=== PATIENT | female | born 1980 | race Caucasian/White ===

== ENCOUNTER 2017-08-07 14:31 | Emergency (ER) | payer BC ==
[2017-08-07] MEDS ORDERED: Sodium Chloride 0.9% 2.5 ML Syringe FLUSH PRN (14:52)
[2017-08-07] MEDS ORDERED: Sodium Chloride 0.9% 10 ML Syringe FLUSH PRN (14:52)
--- NOTE | 2017-08-07 15:30 | EDM.PDOC ---
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 She now has minimal bleeding when she wipes urinating. Patient denies any pelvic pain she says she feels "electrical zap" on her cervix every now and then. Review of systems: As per history of present illness and below otherwise all systems reviewed and negative. Past medical history: As per history of present illness and as reviewed below otherwise noncontributory. Surgical history: As per history of present illness and as reviewed below otherwise noncontributory. Social history: No reported history of drug or alcohol abuse. Family history: As per history of present illness and as reviewed below otherwise noncontributory. Physical exam: General: Well developed, well nourished in NAD HEENT: Atraumatic, normocephalic, pupils reactive, negative for conjunctival pallor or scleral icterus, mucous membranes moist, throat clear, neck supple, nontender, trachea midline. Lungs: Clear to auscultation, breath sounds equal bilaterally, chest nontender. Heart: S1S2, regular, negative for clicks, rubs, or JVD. Abdomen: Soft, nondistended, nontender. Negative for masses or hepatosplenomegaly. Negative for costovertebral tenderness. Pelvis: Stable nontender. Genitourinary: Deferred. Rectal: Deferred. Extremities: Atraumatic, negative for cords or calf pain. Neurovascular unremarkable. Neuro: Awake, alert, oriented. Cranial nerves II through XII unremarkable. Cerebellum unremarkable. Motor and sensory unremarkable throughout. Exam nonfocal. Diagnostics: []Ultrasound shows viable fetus at 6 weeks and 0 days heartbeat and 25 beats minute without signs of hemorrhaging Therapeutics: [] Impression: []Threatened Plan: [] Definitive disposition and diagnosis as appropriate pending reevaluation and review of above. Lower Abdomen Pain Score (Numeric/FACES): 1 - Related Data Allergies Allergy/AdvReac Type Severity Reaction Status Date / Time minocycline Allergy Shortness Verified 08/07/17 14:40 of Breath Home Meds: Home Meds Aspirin 81 mg PO DAILY 08/07/17 [History] Estrogens, Conjugated [Premarin] 0.25 mg PO DAILY 08/07/17 [History] Iron 85 mg PO DAILY 08/07/17 [History] Iar373/FA/Omega3/Dha/Fish Oil [ Gummies] 1 tab PO DAILY 08/07/17 [ History] Progesterone 50 mg PO DAILY 08/07/17 [History] Past Medical History HEENT History: Reports: None Cardiovascular History: Reports: None Respiratory History: Reports: None Gastrointestinal History: Reports: None Genitourinary History: Reports: None 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 Musculoskeletal History: Reports: None Neurological History: Reports: None Psychiatric History: Reports: None Endocrine/Metabolic History: Reports: None Hematologic History: Reports: None Immunologic History: Reports: None Oncologic (Cancer) History: Reports: None Dermatologic History: Reports: None - Past Surgical History Head Surgeries/Procedures: Reports: None HEENT Surgical History: Reports: Tonsillectomy Cardiovascular Surgical History: Reports: None Respiratory Surgical History: Reports: None GI Surgical History: Reports: Appendectomy Female Surgical History: Reports: None Endocrine Surgical History: Reports: None Neurological Surgical History: Reports: None Musculoskeletal Surgical History: Reports: None Oncologic Surgical History: Reports: None Social & Family History - Family History Family Medical History: Noncontributory - Tobacco Use Smoking Status *Q: Never Smoker - Caffeine Use Caffeine Use: Reports: Coffee - Recreational Drug Use Recreational Drug Use: No ED ROS GENERAL - Review of Systems Review Of Systems: See Below ED EXAM - Physical Exam Exam: See Below (See history of present illness) Course - Vital Signs Last Recorded V/S: Last Vital Signs Temp 37.2 C 08/07/17 14:42 Pulse 58 L 08/07/17 16:40 Resp 16 08/07/17 16:40 BP 115/70 08/07/17 16:40 Pulse Ox 98 08/07/17 16:40 - Orders/Labs/Meds Orders: Active Orders 24 hr Category Date Time Status OB Transvaginal [US] Stat Exams 08/07/17 14:52 Taken Saline Lock Insert [OM.PC] Stat Oth 08/07/17 14:51 Ordered Labs: Laboratory Tests 08/07/17 08/07/17 08/07/17 Range/Units 15:04 15:04 15:04 WBC 13.25 H (4.0-11.0) K/uL RBC 4.44 (4.30-5.90) M/uL Hgb 13.7 (12.0-16.0) g/dL Hct 39.7 (36.0-46.0) % MCV 89.4 (80.0-98.0) fL MCH 30.9 (27.0-32.0) pg MCHC 34.5 (31.0-37.0) g/dL RDW Std Deviation 42.9 (28.0-62.0) fl RDW Coeff of Gladys 13 (11.0-15.0) % Plt Count 288 (150-400) K/uL MPV 10.50 (7.40-12.00) fL Neut % (Auto) 77.3 (48.0-80.0) % Lymph % (Auto) 15.1 L (16.0-40.0) % [place] % (Auto) 4.8 (0.0-15.0) % Eos % (Auto) 2.3 (0.0-7.0) % Baso % (Auto) 0.5 (0.0-1.5) % Neut # (Auto) 10.3 H (1.4-5.7) K/uL Lymph # (Auto) 2.0 (0.6-2.4) K/uL [place] # (Auto) 0.6 (0.0-0.8) K/uL Eos # (Auto) 0.3 (0.0-0.7) K/uL Baso # (Auto) 0.1 (0.0-0.1) K/uL Nucleated RBC % 0.0 /100WBC Nucleated RBCs # 0 K/uL HCG, Qual POSITIVE H (NEG) HCG, Quant mIU/mL Urine Color Urine Appearance Urine pH (5.0-8.0) Ur Specific [place] (1.001-1.035) Urine Protein (NEGATIVE) mg/dL Urine Glucose (UA) (NEGATIVE) mg/dL Urine Ketones (NEGATIVE) mg/dL Urine Occult Blood (NEGATIVE) Urine Nitrite (NEGATIVE) Urine Bilirubin (NEGATIVE) Urine Urobilinogen (<2.0) EU/dL Ur Leukocyte Esterase (NEGATIVE) Urine RBC (0-2/HPF) Urine WBC (0-5/HPF) Ur Epithelial Cells (NONE-FEW) Urine Bacteria (NEGATIVE) Blood Type O POSITIVE 08/07/17 08/07/17 Range/Units 15:04 15:25 WBC (4.0-11.0) K/uL RBC (4.30-5.90) M/uL Hgb (12.0-16.0) g/dL Hct (36.0-46.0) % MCV (80.0-98.0) fL MCH (27.0-32.0) pg MCHC (31.0-37.0) g/dL RDW Std Deviation (28.0-62.0) fl RDW Coeff of Gladys (11.0-15.0) % Plt Count (150-400) K/uL MPV (7.40-12.00) fL Neut % (Auto) (48.0-80.0) % Lymph % (Auto) (16.0-40.0) % [place] % (Auto) (0.0-15.0) % Eos % (Auto) (0.0-7.0) % Baso % (Auto) (0.0-1.5) % Neut # (Auto) (1.4-5.7) K/uL Lymph # (Auto) (0.6-2.4) K/uL [place] # (Auto) (0.0-0.8) K/uL Eos # (Auto) (0.0-0.7) K/uL Baso # (Auto) (0.0-0.1) K/uL Nucleated RBC % /100WBC Nucleated RBCs # K/uL HCG, Qual (NEG) HCG, Quant 6375.5 mIU/mL Urine Color YELLOW Urine Appearance CLEAR Urine pH 6.0 (5.0-8.0) Ur Specific [place] <= 1.005 (1.001-1.035) Urine Protein NEGATIVE (NEGATIVE) mg/dL Urine Glucose (UA) NEGATIVE (NEGATIVE) mg/dL Urine Ketones NEGATIVE (NEGATIVE) mg/dL Urine Occult Blood SMALL H (NEGATIVE) Urine Nitrite NEGATIVE (NEGATIVE) Urine Bilirubin NEGATIVE (NEGATIVE) Urine Urobilinogen 0.2 (<2.0) EU/dL Ur Leukocyte Esterase NEGATIVE (NEGATIVE) Urine RBC 0-1 (0-2/HPF) Urine WBC NONE SEEN (0-5/HPF) Ur Epithelial Cells RARE (NONE-FEW) Urine Bacteria RARE (NEGATIVE) Blood Type Meds: Medications Discontinued Medications Generic Name Dose Route Start Last Admin Trade Name Freq PRN Reason Stop Dose Admin Sodium Chloride 10 ml 08/07/17 14:52 Saline Flush FLUSH ASDIRECTED PRN Keep Vein Open Sodium Chloride 2.5 ml 08/07/17 14:52 Saline Flush FLUSH ASDIRECTED PRN Keep Vein Open Departure - Departure Time of Disposition: 16:47 Disposition: Home, Self-Care 01 Condition: Good Clinical Impression: Threatened - Discharge Information Instructions: Threatened Miscarriage, Vaginal Bleeding During , First Trimester, [id number] Referrals: Anshu Haq MD [Physician] - Catalina Moreau MD [Physician] - Forms: ED Department Discharge Additional Instructions: The following information is given to patients seen in the emergency department who are being discharged to home. This information is to outline your options for follow-up care. We provide all patients seen in our emergency department with a follow-up referral. The need for follow-up, as well as the timing and circumstances, are variable depending upon the specifics of your emergency department visit. If you don't have a primary care physician on staff, we will provide you with a referral. We always advise you to contact your personal physician following an emergency department visit to inform them of the circumstance of the visit and for follow-up with them and/or the need for any referrals to a consulting specialist. The emergency department will also refer you to a specialist when appropriate. This referral assures that you have the opportunity for follow-up care with a specialist. All of these measure are taken in an effort to provide you with optimal care, which includes your follow-up. Under all circumstances we always encourage you to contact your private physician who remains a resource for coordinating your care. When calling for follow-up care, please make the office aware that this follow-up is from your recent emergency room visit. If for any reason you are refused follow-up, please contact the [facility] Emergency Department at and asked to speak to the emergency department charge nurse. Follow up with OB if symptoms worsen or change [facility] [address] [place] [id number] - My Orders Last 24 Hours: My Active Orders 08/07/17 14:51 Saline Lock Insert [OM.PC] Stat 08/07/17 14:52 OB Transvaginal [US] Stat - Assessment/Plan Last 24 Hours: My Active Orders 08/07/17 14:51 Saline Lock Insert [OM.PC] Stat 08/07/17 14:52 OB Transvaginal [US] Stat
[2017-08-07 16:41] VITALS: BP 115/70
--- NOTE | 2017-08-08 18:49 | US ---
EXAM DATE: 08/07/17 PATIENT'S AGE: 36 Patient: ROSE MARY SHRESTHA Facility: [place], [place] Site . Site : 1980 Study: US OB Pelvis [id number] 3:28:43 PM Ordering Physician: Jed Andre Final Report: INDICATION: 1st trimester with vaginal spotting. TECHNIQUE: Ultrasound OB pelvis transvaginal. Real-time suarez-scale imaging of the pelvis was performed. COMPARISON: None FINDINGS: Sonographic imaging demonstrates a single living intrauterine gestation. The embryo demonstrates a regular cardiac rate measuring 125 beats per minute. The embryo`s crown rump length measurement of 0.3 cm corresponds to a gestational age of 6 weeks 0 days with a sonographic due date of April 03, 2018. There is a normal appearing yolk sac. There are no gross abnormalities noted within the embryo at this early state of development. The placenta has not yet developed. There is no sign of perigestational hemorrhage. The ovaries are of normal size. There are no suspicious fluid collections noted in the cul-de-sac. IMPRESSION: Single viable intrauterine . No abnormalities seen. Dictated by Compa Obando MD @ 08/07/2017 4:19:19 PM Dictated by: Compa Obando MD @ 08/07/2017 16:19:26 (Electronic Signature) Report Signed by Proxy. [facility]
== END 2017-08-07 16:40 | disposition home or self-care (01) ==
LOC: MW.ED 14:31
DX: O20.0 Threatened abortion (principal); Z88.1 Allergy status to other antibiotic agents; Z79.82 Long term (current) use of aspirin; Z79.899 Other long term (current) drug therapy
CPT/HCPCS: 76817; 76817-26; 81001; 84702; 84703; 85025; 86900; 86901; 99283; 99284-25

== ENCOUNTER 2017-08-12 10:40 | Emergency (ER) | payer BC ==
--- NOTE | 2017-08-12 12:29 | EDM.PDOC ---
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 Past medical history: As per history of present illness and as reviewed below otherwise noncontributory. Surgical history: As per history of present illness and as reviewed below otherwise noncontributory. Social history: No reported history of drug or alcohol abuse. Family history: As per history of present illness and as reviewed below otherwise noncontributory. Physical exam: Alert very emotional female crying at times answers questions in full sentences without shortness of breath. HEENT: Atraumatic, normocehpalic, pupils reactive, negative for conjunctival pallor or scleral icterus, mucous membranes moist, throat clear, neck supple, nontender, trachea midline. Lungs: Clear to auscultation, breath sounds equal bilaterally, chest non tender. Heart: S1S2, regular, negative for clicks, rubs, or JVD. Abdomen: Soft, nondistended, nontender. Negative for masses or hepatossplenmegaly. Negative for costovertebral tenderness. Pelvis: Stable nontender. Genitourinary: Minor spotting noted on her pad that she has on, no tissue or contents expelled with any pressure to abdomen. Rectal: Deferred Extremities: Atraumatic, negative for cords or calf pain. Neurovascular unremarkable. Neuro: Awake, alert, oriented. Cranial nerves II through XII unremarkable. Cerebellum unremarkable. Motor and sensory unremarkable throughout. Exam nonfocal. Patient and have been notified of the results of the ultrasound there still is a heartbeat present. there is fluid in the pelvis area. No subchorionic fluid was noted. Hemoglobin 12.6 Diagnostics: [OB ultrasound] Therapeutics: [] Impression: [Threatened ] Plan: [Discharged to home Keep your appointment with Paulina Dykes M.D. today at 2:30 as previously scheduled. Definitive disposition and diagnosis as appropriate pending reevaluation and review of above. Lower Abdominal Pain Score (Numeric/FACES): 4 - Related Data Allergies Allergy/AdvReac Type Severity Reaction Status Date / Time minocycline Allergy Shortness Verified 08/12/17 10:59 of Breath Home Meds: Home Meds Aspirin 81 mg PO DAILY 08/07/17 [History] Estrogens, Conjugated [Premarin] 0.25 mg PO DAILY 08/07/17 [History] Iron 85 mg PO DAILY 08/07/17 [History] Tro516/FA/Omega3/Dha/Fish Oil [ Gummies] 1 tab PO DAILY 08/07/17 [ History] Progesterone 50 mg PO DAILY 08/07/17 [History] Past Medical History HEENT History: Reports: None Cardiovascular History: Reports: None Respiratory History: Reports: None Gastrointestinal History: Reports: None Genitourinary History: Reports: None 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 Musculoskeletal History: Reports: None Neurological History: Reports: None Psychiatric History: Reports: None Endocrine/Metabolic History: Reports: None Hematologic History: Reports: None Immunologic History: Reports: None Oncologic (Cancer) History: Reports: None Dermatologic History: Reports: None - Past Surgical History Head Surgeries/Procedures: Reports: None HEENT Surgical History: Reports: Tonsillectomy Cardiovascular Surgical History: Reports: None Respiratory Surgical History: Reports: None GI Surgical History: Reports: Appendectomy Female Surgical History: Reports: None Endocrine Surgical History: Reports: None Neurological Surgical History: Reports: None Musculoskeletal Surgical History: Reports: None Oncologic Surgical History: Reports: None Social & Family History - Family History Family Medical History: Noncontributory - Tobacco Use Smoking Status *Q: Never Smoker - Caffeine Use Caffeine Use: Reports: None - Recreational Drug Use Recreational Drug Use: No ED ROS GENERAL - Review of Systems Review Of Systems: ROS reveals no pertinent complaints other than HPI. ED EXAM - Physical Exam Exam: See Below (See dictation) Course - Vital Signs Last Recorded V/S: Last Vital Signs Temp 36.6 C 08/12/17 10:59 Pulse 71 08/12/17 10:59 Resp 18 08/12/17 10:59 BP 146/93 H 08/12/17 10:59 Pulse Ox 99 08/12/17 10:59 - Orders/Labs/Meds Orders: Active Orders 24 hr Category Date Time Status OB 1st Tri Sgl 1st Gest [US] Stat Exams 08/12/17 11:10 Taken Labs: Laboratory Tests 08/12/17 Range/Units 11:27 WBC 10.87 (4.0-11.0) K/uL RBC 4.10 L (4.30-5.90) M/uL Hgb 12.6 (12.0-16.0) g/dL Hct 36.7 (36.0-46.0) % MCV 89.5 (80.0-98.0) fL MCH 30.7 (27.0-32.0) pg MCHC 34.3 (31.0-37.0) g/dL RDW Std Deviation 43.6 (28.0-62.0) fl RDW Coeff of Gladys 14 (11.0-15.0) % Plt Count 261 (150-400) K/uL MPV 10.20 (7.40-12.00) fL Neut % (Auto) 62.1 (48.0-80.0) % Lymph % (Auto) 26.3 (16.0-40.0) % [place] % (Auto) 7.1 (0.0-15.0) % Eos % (Auto) 4.0 (0.0-7.0) % Baso % (Auto) 0.5 (0.0-1.5) % Neut # (Auto) 6.8 H (1.4-5.7) K/uL Lymph # (Auto) 2.9 H (0.6-2.4) K/uL [place] # (Auto) 0.8 (0.0-0.8) K/uL Eos # (Auto) 0.4 (0.0-0.7) K/uL Baso # (Auto) 0.1 (0.0-0.1) K/uL Nucleated RBC % 0.0 /100WBC Nucleated RBCs # 0 K/uL Departure - Departure Time of Disposition: 12:37 Disposition: Home, Self-Care 01 Condition: Good Clinical Impression: Threatened - Discharge Information Referrals: PCP,Unknown [Primary Care Provider] - Forms: ED Department Discharge Additional Instructions: The following information is given to patients seen in the emergency department who are being discharged to home. This information is to outline your options for follow-up care. We provide all patients seen in our emergency department with a follow-up referral. The need for follow-up, as well as the timing and circumstances, are variable depending upon the specifics of your emergency department visit. If you don't have a primary care physician on staff, we will provide you with a referral. We always advise you to contact your personal physician following an emergency department visit to inform them of the circumstance of the visit and for follow-up with them and/or the need for any referrals to a consulting specialist. The emergency department will also refer you to a specialist when appropriate. This referral assures that you have the opportunity for followup care with a specialist. All of these measure are taken in an effort to provide you with optimal care, which includes your followup. Under all circumstances we always encourage you to contact your private physician who remains a resource for coordinating your care. When calling for followup care, please make the office aware that this follow-up is from your recent emergency room visit. If for any reason you are refused follow-up, please contact the [facility] emergency department at and asked to speak to the emergency department charge nurse. You were noted to have vaginal bleeding while in the emergency department Ultrasound did not show any subchorionic fluid, heartbeat was noted by ultrasound 6 weeks 1 day Please keep your appointment with Dr. Paulina Dykes at 2:30 as previously scheduled - My Orders Last 24 Hours: My Active Orders 08/12/17 11:10 OB 1st Tri Sgl 1st Gest [US] Stat - Assessment/Plan Last 24 Hours: My Active Orders 08/12/17 11:10 OB 1st Tri Sgl 1st Gest [US] Stat
[2017-08-12 12:48] VITALS: BP 123/45
--- NOTE | 2017-08-15 11:13 | US ---
EXAM DATE: 08/12/17 PATIENT'S AGE: 36 Patient: ROSE MARY SHRESTHA Facility: [place], [place] Site . Site : 1980 Study: US OB Pelvis [id number] 12:17:16 PM Ordering Physician: Doctor Rivera Final Report: HISTORY: Bleeding and cramping, early OB. FINDINGS: Multiple grayscale static images from a trans vaginal and transabdominal OB ultrasound were evaluated and compared 07 August 2017. Two cine series were obtained. An intrauterine gestational sac is present with a mean sac diameter of 1.2 cm consistent with 5 weeks 6 days. A 5 mm yolk sac is present. A pole is present with a crown-rump length of 3.5 cm consistent with 6 weeks 3 days. This is a composite age of 6 weeks 1 day estimated delivery 06 Apr 2018. The cardiac rate is 130 beats per minute. No subchorionic hemorrhage is appreciated. There is a small amount of fluid in the right side of the cul-de- sac and in the left fundus of the uterus. The right ovary measures 1.3 x 2.0 x 1.3 cm. It does demonstrate some blood flow by color Doppler. The right ovary was tender during transvaginal imaging. The left ovary measures 2.7 x 1.3 x 1.9 cm. It is better defined in the right ovary is seen only transabdominally. IMPRESSION: 1. Single viable Michele with a composite age of 6 weeks 1 day. No subchorionic hemorrhage is appreciated. 2. Small amount of free fluid seen within the right side of the cul-de-sac and in the left fundus of the uterus. 3. Ovaries are within normal limits. sand technologist indicates the right ovary was very tender on transvaginal scanning. Dictated by Lyndsey Avalos MD @ 08/12/2017 12:31:53 PM Dictated by: Lyndsey Avalos MD @ 08/12/2017 12:32:02 (Electronic Signature) Report Signed by Proxy. JUDITH
== END 2017-08-12 12:44 | disposition home or self-care (01) ==
LOC: MW.ED 10:40
DX: O20.0 Threatened abortion (principal); Z3A.01 Less than 8 weeks gestation of pregnancy; Z79.82 Long term (current) use of aspirin; Z98.890 Other specified postprocedural states; Z79.899 Other long term (current) drug therapy; Z88.1 Allergy status to other antibiotic agents; O20.9 Hemorrhage in early pregnancy, unspecified
CPT/HCPCS: 36415; 76801; 76801-26; 84702; 85025; 99283; 99284-25

== ENCOUNTER 2018-03-29 20:28 | Inpatient (IN) | payer BC ==
[2018-03-29] MEDS ORDERED: Misoprostol 200 MCG Tab PO PRN (21:09)
[2018-03-29] MEDS ORDERED: Water For Irrigation,Sterile 1,000 ML Container IRR PRN (21:09)
[2018-03-29] MEDS ORDERED: Sodium Chloride 0.9% 10 ML Syringe FLUSH PRN (21:09)
[2018-03-29] MEDS ORDERED: Butorphanol 1 MG/ML SDV IVPUSH PRN (21:09)
[2018-03-29] MEDS ORDERED: Nalbuphine 10 MG/1 ML Vial IVPUSH PRN (21:09)
[2018-03-29] MEDS ORDERED: Lidocaine 1% 50 ML MDV INJECT PRN (21:09)
[2018-03-29] MEDS ORDERED: Methylergonovine 0.2 MG/1 ML Amp IM PRN (21:09)
[2018-03-29] MEDS ORDERED: Carboprost Tromethamine 250 MCG/1 ML Amp IM PRN (21:09)
[2018-03-29] MEDS ORDERED: Sodium Chloride 0.9% 2.5 ML Syringe FLUSH PRN (21:09)
[2018-03-29] MEDS ORDERED: Terbutaline 1 MG/ML SDV SUBCUT PRN (21:09)
[2018-03-29] MEDS ORDERED: Tranexamic Acid 1,000 MG in Sodium Chloride 0.9% 100 ML IV PRN (21:09)
[2018-03-29] MEDS ORDERED: Oxytocin/0.9 % Sodium Chloride 30 UNIT/500 ML BAG IV SCH ×2 (21:15)
[2018-03-29] MEDS ORDERED: Lactated Ringers 1,000 ML IV SCH (21:15)
--- NOTE | 2018-03-29 21:37 | PCM.LDHP ---
L&D History of Present Illness - General Date of Service: 03/29/18 Admit Problem/Dx: Patient Status Order with Admit Dx/Problem 03/29/18 21:21 Patient Status [ADT] Routine Admission Diagnosis/Problem Admission Diagnosis/Problem Source of Information: Patient History Limitations: Reports: No Limitations - History of Present Illness Improves with: Reports: None Worsens with: Reports: None Associated Symptoms: Reports: N - Related Data Allergies/Adverse Reactions: Allergies Allergy/AdvReac Type Severity Reaction Status Date / Time minocycline Allergy Shortness Verified 08/12/17 10:59 of Breath Home Medications: Home Meds Aspirin 81 mg PO DAILY 08/07/17 [History] Estrogens, Conjugated [Premarin] 0.25 mg PO DAILY 08/07/17 [History] Iron 85 mg PO DAILY 08/07/17 [History] Mtw290/FA/Omega3/Dha/Fish Oil [ Gummies] 1 tab PO DAILY 08/07/17 [ History] Progesterone 50 mg PO DAILY 08/07/17 [History] Past Medical History HEENT History: Reports: None Cardiovascular History: Reports: None Respiratory History: Reports: None Gastrointestinal History: Reports: None Genitourinary History: Reports: None 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 Musculoskeletal History: Reports: None Neurological History: Reports: None Psychiatric History: Reports: None Endocrine/Metabolic History: Reports: None Hematologic History: Reports: None Immunologic History: Reports: None Oncologic (Cancer) History: Reports: None Dermatologic History: Reports: None - Past Surgical History Head Surgeries/Procedures: Reports: None HEENT Surgical History: Reports: Tonsillectomy Cardiovascular Surgical History: Reports: None Respiratory Surgical History: Reports: None GI Surgical History: Reports: Appendectomy Female Surgical History: Reports: None Endocrine Surgical History: Reports: None Neurological Surgical History: Reports: None Musculoskeletal Surgical History: Reports: None Oncologic Surgical History: Reports: None Social & Family History - Family History Family Medical History: Noncontributory - Tobacco Use Smoking Status *Q: Never Smoker - Caffeine Use Caffeine Use: Reports: None - Recreational Drug Use Recreational Drug Use: No H&P Review of Systems - Review of Systems: Review Of Systems: See Below General: Reports: No Symptoms HEENT: Reports: No Symptoms Pulmonary: Reports: No Symptoms Cardiovascular: Reports: No Symptoms Gastrointestinal: Reports: No Symptoms Genitourinary: Reports: No Symptoms Musculoskeletal: Reports: No Symptoms Skin: Reports: No Symptoms Psychiatric: Reports: No Symptoms Neurological: Reports: No Symptoms Hematologic/Lymphatic: Reports: No Symptoms Immunologic: Reports: No Symptoms L&D Exam - Exam Exam: See Below - Vital Signs Weight: 125.787 kg - OB Specific Fundal Height In cm: 38 Contraction Intensity: Mild Movement: Active Heart Tones: Present Presentation: Vertex - Schwarz Score Schwarz Score Cervix Position: Midposition Schwarz Score Consistency: Medium Schwarz Score Effacement: 51-70% Schwarz Score Dilation: 1-2 cm Schwarz Score 's Station: -2 Schwarz Score Total: 6 - Exam General: Alert, Oriented HEENT: PERRLA, Conjunctiva Clear, EACs Clear, EOMI, Hearing Intact, Mucosa Moist & [place], Nares Patent, Normal Nasal Septum, Posterior Pharynx Clear, TMs Clear Neck: Supple, Trachea Midline Lungs: Clear to Auscultation, Normal Respiratory Effort Cardiovascular: Regular Rate, Regular Rhythm GI/Abdominal Exam: Normal Bowel Sounds, Soft, Non-Tender, No Organomegaly, No Distention, No Abnormal Bruit, No Mass, Pelvis Stable Rectal Exam: Normal Exam, Normal Rectal Tone Genitourinary: Normal external exam, Normal bimanual exam, Normal speculum exam Back Exam: Normal Inspection, Full Range of Motion Extremities: Normal Inspection, Normal Range of Motion, Non-Tender, No Pedal Edema, Normal Capillary Refill Skin: Warm, Dry, Intact Neurological: Cranial Nerves Intact, Reflexes Equal Bilateral Psychiatric: Alert, Normal Affect, Normal Mood Problem List Initiated/Reviewed/Updated: Yes Orders Last 24hrs: Active Orders 24 hr Category Date Time Status Patient Status [ADT] Routine ADT 03/29/18 21:21 Active Bedrest Bathroom Privileges [RC] ASDIRECTED Care 03/29/18 21:21 Active Communication Order [RC] ASDIRECTED Care 03/29/18 21:21 Active Communication Order [RC] ASDIRECTED Care 03/29/18 21:21 Active Heart Tones [RC] CONTINUOUS Care 03/29/18 21:21 Active Non Stress Test [RC] PER UNIT ROUTINE Care 03/29/18 21:21 Active May Shower [RC] ASDIRECTED Care 03/29/18 21:21 Active Notify Provider [RC] PRN Care 03/29/18 21:21 Active Notify Provider [RC] PRN Care 03/29/18 21:21 Active Oxygen Therapy [RC] ASDIRECTED Care 03/29/18 21:21 Active Up ad Marie [RC] ASDIRECTED Care 03/29/18 21:21 Active Vaginal Exam [RC] PRN Care 03/29/18 21:21 Active Vaginal Exam [RC] PRN Care 03/29/18 21:21 Active Vital Signs [RC] PER UNIT ROUTINE Care 03/29/18 21:21 Active Vital Signs [RC] PER UNIT ROUTINE Care 03/29/18 21:21 Active CBC W/O DIFF,HEMOGRAM [HEME] Routine Lab 03/29/18 21:21 Ordered TYPE AND SCREEN [BBK] Routine Lab 03/29/18 21:21 Ordered Butorphanol [Stadol] Med 03/29/18 21:09 Active 1 mg IVPUSH Q1H PRN Carboprost Tromethamine [Hemabate DS] Med 03/29/18 21:09 Active 250 mcg IM ASDIRECTED PRN Lactated Ringers [Ringers, Lactated] 1,000 ml Med 03/29/18 21:15 Active IV ASDIRECTED Lidocaine 1% [Xylocaine 1%] Med 03/29/18 21:09 Active 50 ml INJECT .ONCE PRN Methylergonovine [Methergine] Med 03/29/18 21:09 Active 0.2 mg IM ASDIRECTED PRN Misoprostol [Cytotec] Med 03/29/18 21:09 Active 200 mcg PO .ONCE PRN Nalbuphine [Nubain] Med 03/29/18 21:09 Active 10 mg IVPUSH Q1H PRN Oxytocin/0.9 % Sodium Chloride [Oxytocin 30 Unit/500 ML Med 03/29/18 21:15 Active -NS] 30 unit in 500 ml IV TITRATE Oxytocin/0.9 % Sodium Chloride [Oxytocin 30 Unit/500 ML Med 03/29/18 21:15 Active -NS] 30 unit in 500 ml IV TITRATE Sodium Chloride 0.9% [Saline Flush] Med 03/29/18 21:09 Active 10 ml FLUSH ASDIRECTED PRN Sodium Chloride 0.9% [Saline Flush] Med 03/29/18 21:09 Active 2.5 ml FLUSH ASDIRECTED PRN Terbutaline [Brethine] Med 03/29/18 21:09 Active 0.25 mg SUBCUT ASDIRECTED PRN Tranexamic Acid [Cyklokapron] 1,000 mg Med 03/29/18 21:09 Active Sodium Chloride 0.9% [Normal Saline] 100 ml IV ONETIME Water For Irrigation,Sterile [Sterile Water for Med 03/29/18 21:09 Active Irrigation] 1,000 ml IRR ASDIRECTED PRN Scalp Electrode [WOMSER] Per Unit Routine Oth 03/29/18 21:21 Ordered Medication Administration Instruction [OM.PC] Q3H Oth 03/29/18 21:30 Ordered Peripheral IV Insertion Adult [OM.PC] Routine Oth 03/29/18 21:21 Ordered Resuscitation Status Routine Resus Stat 03/29/18 21:09 Ordered Medication Orders Butorphanol Tartrate (Stadol) 1 mg IVPUSH Q1H PRN PRN Reason: Pain Carboprost Tromethamine (Hemabate Ds) 250 mcg IM ASDIRECTED PRN PRN Reason: Post Hemorrhage Lactated Ringer's (Ringers, Lactated) 1,000 mls @ 150 mls/hr IV ASDIRECTED JIMBO Oxytocin/Sodium Chloride (Oxytocin 30 Unit/500 Ml-Ns) 30 unit in 500 mls @ 999 mls/hr IV TITRATE JIMBO Oxytocin/Sodium Chloride (Oxytocin 30 Unit/500 Ml-Ns) 30 unit in 500 mls @ 2 mls/hr IV TITRATE JIMBO; Protocol Tranexamic Acid 1,000 mg/ (Sodium Chloride) 110 mls @ 660 mls/hr IV ONETIME PRN PRN Reason: Bleeding Lidocaine HCl (Xylocaine 1%) 50 ml INJECT .ONCE PRN PRN Reason: Laceration repair Methylergonovine Maleate (Methergine) 0.2 mg IM ASDIRECTED PRN PRN Reason: Post Hemorrhage Misoprostol (Cytotec) 200 mcg PO .ONCE PRN PRN Reason: Post Hemorrhage Nalbuphine HCl (Nubain) 10 mg IVPUSH Q1H PRN PRN Reason: Pain (severe 7-10) Sodium Chloride (Saline Flush) 10 ml FLUSH ASDIRECTED PRN PRN Reason: Keep Vein Open Sodium Chloride (Saline Flush) 2.5 ml FLUSH ASDIRECTED PRN PRN Reason: Keep Vein Open Sterile Water (Sterile Water For Irrigation) 1,000 ml IRR ASDIRECTED PRN PRN Reason: delivery Terbutaline Sulfate (Brethine) 0.25 mg SUBCUT ASDIRECTED PRN PRN Reason: Tacysystole Assessment/Plan Comment:: Admitted for elective induction. she can have epidural when needed.
[2018-03-29] MEDS ORDERED: Misoprostol 50 MCG (1/2 of 100 MCG) Tab VAG PRN ×3 (22:27→22:59)
[2018-03-29] MEDS ORDERED: hydrOXYzine Pamoate 25 MG Cap PO ONE (22:28)
[2018-03-29] MEDS: Misoprostol 25 MCG (1/4 of 100 MCG) Tab PO PRN (23:05)
[2018-03-29] MEDS ORDERED: Misoprostol 50 MCG (1/2 of 100 MCG) Tab VAG ONE (23:37)
[2018-03-30] MEDS: Misoprostol 25 MCG (1/4 of 100 MCG) Tab PO PRN (03:24)
--- NOTE | 2018-03-30 09:10 | PCM.PREANE ---
Preanesthetic Assessment - Anesthesia/Transfusion/Family Hx Anesthesia History: Prior Anesthesia Reaction Other Type of Anesthesia Reaction Comment: Parestheia on the left 3 toes Transfusion History: No Prior Transfusion(s) - Review of Systems General: No Symptoms Pulmonary: No Symptoms Cardiovascular: No Symptoms Gastrointestinal: No Symptoms Neurological: No Symptoms Other: Reports: None - Physical Assessment Height: 5 ft 8 in Weight: 125.787 kg ASA Class: 2 Mental Status: Alert & Oriented x3 Airway Class: Mallampati = 2 Dentition: Reports: Normal Dentition Thyro-Mental Finger Breadths: 3 Mouth Opening Finger Breadths: 3 ROM/Head Extension: Full Lungs: Clear to Auscultation, Normal Respiratory Effort Cardiovascular: Regular Rate, Regular Rhythm - Lab Values: Laboratory Last Values WBC 10.14 K/uL (4.0-11.0) 03/29/18 21:43 RBC 4.21 M/uL (4.30-5.90) L 03/29/18 21:43 Hgb 13.3 g/dL (12.0-16.0) 03/29/18 21:43 Hct 39.0 % (36.0-46.0) 03/29/18 21:43 MCV 92.6 fL (80.0-98.0) 03/29/18 21:43 MCH 31.6 pg (27.0-32.0) 03/29/18 21:43 MCHC 34.1 g/dL (31.0-37.0) 03/29/18 21:43 RDW Std Deviation 47.3 fl (28.0-62.0) 03/29/18 21:43 RDW Coeff of Gladys 14 % (11.0-15.0) 03/29/18 21:43 Plt Count 209 K/uL (150-400) 03/29/18 21:43 MPV 11.60 fL (7.40-12.00) 03/29/18 21:43 Nucleated RBC % 0.0 /100WBC 03/29/18 21:43 Nucleated RBCs # 0 K/uL 03/29/18 21:43 Blood Type O POSITIVE 03/29/18 21:43 Antibody Screen NEGATIVE 03/29/18 21:43 - Allergies Allergies/Adverse Reactions: Allergies Allergy/AdvReac Type Severity Reaction Status Date / Time minocycline Allergy Shortness Verified 08/12/17 10:59 of Breath - Acknowledgements Anesthesia Type Planned: Epidural Pt an Appropriate Candidate for the Planned Anesthesia: Yes Alternatives and Risks of Anesthesia Discussed w Pt/Guardian: Yes Pt/Guardian Understands and Agrees with Anesthesia Plan: Yes PreAnesthesia Questionnaire HEENT History: Reports: None Cardiovascular History: Reports: None Respiratory History: Reports: None Gastrointestinal History: Reports: None Genitourinary History: Reports: None 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 : 2 Para: 1 LMP (Approximate): Musculoskeletal History: Reports: None Neurological History: Reports: None Psychiatric History: Reports: None 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 Endocrine/Metabolic History: Reports: Obesity/BMI 30+ Hematologic History: Reports: None Immunologic History: Reports: None Oncologic (Cancer) History: Reports: None Dermatologic History: Reports: None - Infectious Disease History Infectious Disease History: Reports: None - Past Surgical History Head Surgeries/Procedures: Reports: None HEENT Surgical History: Reports: Tonsillectomy Cardiovascular Surgical History: Reports: None Respiratory Surgical History: Reports: None GI Surgical History: Reports: Appendectomy Female Surgical History: Reports: None Endocrine Surgical History: Reports: None Neurological Surgical History: Reports: None Musculoskeletal Surgical History: Reports: None Oncologic Surgical History: Reports: None - SUBSTANCE USE Smoking Status *Q: Never Smoker Second Hand Smoke Exposure: No Recreational Drug Use History: No - HOME MEDS Home Medications: Home Meds Gdj703/FA/Omega3/Dha/Fish Oil [ Gummies] 1 tab PO DAILY 08/07/17 [ History] Ondansetron [Zofran ODT] 4 mg PO Q6H PRN 03/30/18 [History] Sertraline HCl [Zoloft] 50 mg PO DAILY 03/30/18 [History] valACYclovir [Valtrex] 1,000 mg PO TID 03/30/18 [History] - CURRENT (IN HOUSE) MEDS Current Meds: Current Medications Butorphanol Tartrate (Stadol) 1 mg IVPUSH Q1H PRN PRN Reason: Pain Carboprost Tromethamine (Hemabate Ds) 250 mcg IM ASDIRECTED PRN PRN Reason: Post Hemorrhage Lactated Ringer's (Ringers, Lactated) 1,000 mls @ 150 mls/hr IV ASDIRECTED JIMBO Oxytocin/Sodium Chloride (Oxytocin 30 Unit/500 Ml-Ns) 30 unit in 500 mls @ 999 mls/hr IV TITRATE JIMBO Oxytocin/Sodium Chloride (Oxytocin 30 Unit/500 Ml-Ns) 30 unit in 500 mls @ 2 mls/hr IV TITRATE JIMBO; Protocol Tranexamic Acid 1,000 mg/ (Sodium Chloride) 110 mls @ 660 mls/hr IV ONETIME PRN PRN Reason: Bleeding Lidocaine HCl (Xylocaine 1%) 50 ml INJECT .ONCE PRN PRN Reason: Laceration repair Methylergonovine Maleate (Methergine) 0.2 mg IM ASDIRECTED PRN PRN Reason: Post Hemorrhage Misoprostol (Cytotec) 200 mcg PO .ONCE PRN PRN Reason: Post Hemorrhage Misoprostol (Cytotec) 25 mcg PO Q4H PRN PRN Reason: cervical ripening Last Admin: 03/30/18 03:24 Dose: 25 mcg Misoprostol (Cytotec) 25 mcg VAG Q4H PRN PRN Reason: cervical ripening Last Admin: 03/30/18 03:25 Dose: 25 mcg Nalbuphine HCl (Nubain) 10 mg IVPUSH Q1H PRN PRN Reason: Pain (severe 7-10) Sodium Chloride (Saline Flush) 10 ml FLUSH ASDIRECTED PRN PRN Reason: Keep Vein Open Sodium Chloride (Saline Flush) 2.5 ml FLUSH ASDIRECTED PRN PRN Reason: Keep Vein Open Sterile Water (Sterile Water For Irrigation) 1,000 ml IRR ASDIRECTED PRN PRN Reason: delivery Terbutaline Sulfate (Brethine) 0.25 mg SUBCUT ASDIRECTED PRN PRN Reason: Tacysystole Discontinued Medications Hydroxyzine Pamoate (Vistaril) 50 mg PO ONETIME ONE Stop: 03/29/18 22:29 Last Admin: 03/29/18 23:07 Dose: 50 mg Misoprostol (Cytotec) 25 mcg VAG Q4H PRN PRN Reason: cervical ripening Misoprostol (Cytotec) 25 mcg VAG Q4H PRN PRN Reason: cervical ripening Misoprostol (Cytotec) 25 mcg VAG ONETIME ONE Stop: 03/29/18 23:38 Last Admin: 03/29/18 23:10 Dose: 25 mcg
[2018-03-30] MEDS ORDERED: Ibuprofen 400 MG Tab PO PRN (14:24)
[2018-03-30] MEDS ORDERED: Witch Hazel Medicated Pads 40/Jar TOP PRN (14:24)
[2018-03-30] MEDS ORDERED: Acetaminophen 500 MG Tab PO PRN ×2 (14:24)
[2018-03-30] MEDS ORDERED: Bisacodyl 10 MG Supp RECTAL PRN (14:24)
[2018-03-30] MEDS ORDERED: Lanolin 100% Cream 7 GM Tube TOP PRN (14:24)
[2018-03-30] MEDS ORDERED: oxyCODONE 5 MG Tab PO PRN (14:24)
[2018-03-30] MEDS ORDERED: Benzocaine/Menthol 20%-0.5% Spray 78 GM Cannister TOP PRN (14:24)
[2018-03-30] MEDS ORDERED: Docusate Sodium 100 MG Cap PO PRN (14:24)
--- NOTE | 2018-03-30 14:33 | PCM.DEL ---
L & D Note - General Info Date of Service: 03/30/18 Mother's Due Date: 04/01/18 - Delivery Note Cervical Ripening Method: Misoprostil Delivery Outcome: Livebirth Infant Delivery Method: Spontaneous Vaginal Delivery-Single Delivery Mode: Spontaneous Presentation: Vertex Nuchal Cord: None Anesthesia Type: Epidural Amniotic Fluid Description: Clear Episiotomy Type: None Laceration: Sulcus Suture type: Chromic Suture size: 3-0 Placenta: Intact, Spontaneous Cord: 3 Vessels Estimated Blood Loss: 150 Resuscitation Needed: Yes Score 1 min: 8 Score 5 min: 9 Second Stage Interventions: Reports: Pushing, Pulls Own Legs Back Delivery Comments (Free Text/Narrative):: of viable female. Head delivered with good pushing, shoulders and body followed easily. Infant to mothers abdomen with spont cry. RN at for support. Delayed cord clamping. Pitocin to IVF. Cord clamped and cut. Cord blood collected. Placenta delivered manually grossly intact. 3VC. Inspection noted small ML sulcus tear, repaired with 3-0 mono. Bimanual normal. EBL 150cc. APGARS 8/9, Wt: 7lb 15oz. Mother and baby left in stable condition bonding well. Induction Criteria - Schwarz Score Schwarz Score Dilation: 1-2 cm Schwarz Score Effacement: 60-70% Schwarz Score Infant's Station: -1 ,0 Schwarz Score Consistency: Soft Schwarz Score Cervix Position: Midposition Schwarz Score Total: 8 Schwarz Score Presenting Part: Reports: Cephalic - Induction Gestational Age >/= 39 wks: Yes Medical Indication: AMA, IVF Estimated Pelvis: Reports: Adequate Reassuring Monitoring Strip: Yes Absence of Tachy Systole: Yes - General Info Date of Service: 03/30/18 Admission Dx/Problem (Free Text): Patient Status Order with Admit Dx/Problem 03/29/18 21:21 Patient Status [ADT] Routine Admission Diagnosis/Problem Admission Diagnosis/Problem Functional Status: Reports: Pain Controlled - Review of Systems General: Reports: No Symptoms HEENT: Reports: No Symptoms Pulmonary: Reports: No Symptoms Cardiovascular: Reports: No Symptoms Gastrointestinal: Reports: No Symptoms Genitourinary: Reports: No Symptoms Musculoskeletal: Reports: No Symptoms Skin: Reports: No Symptoms Neurological: Reports: No Symptoms Psychiatric: Reports: No Symptoms - Patient Data Weight - Most Recent: 125.787 kg Lab Results Last 24 Hours: Laboratory Results - last 24 hr 03/29/18 03/29/18 Range/Units 21:43 21:43 WBC 10.14 (4.0-11.0) K/uL RBC 4.21 L (4.30-5.90) M/uL Hgb 13.3 (12.0-16.0) g/dL Hct 39.0 (36.0-46.0) % MCV 92.6 (80.0-98.0) fL MCH 31.6 (27.0-32.0) pg MCHC 34.1 (31.0-37.0) g/dL RDW Std Deviation 47.3 (28.0-62.0) fl RDW Coeff of Gladys 14 (11.0-15.0) % Plt Count 209 (150-400) K/uL MPV 11.60 (7.40-12.00) fL Nucleated RBC % 0.0 /100WBC Nucleated RBCs # 0 K/uL Blood Type O POSITIVE Antibody Screen NEGATIVE Med Orders - Current: Current Medications Acetaminophen (Tylenol Extra Strength) 500 mg PO Q4H PRN PRN Reason: Pain Acetaminophen (Tylenol Extra Strength) 1,000 mg PO Q4H PRN PRN Reason: Pain Benzocaine/Menthol (Dermoplast Pain Relief 20%-0.5% [place]) 78 gm TOP ASDIRECTED PRN PRN Reason: Perineal Comfort Measure Bisacodyl (Dulcolax) 10 mg RECTAL .ONCE PRN PRN Reason: Constipation Docusate Sodium (Colace) 100 mg PO BID PRN PRN Reason: Constipation Emollient Ointment (Lansinoh Hpa) 0 gm TOP ASDIRECTED PRN PRN Reason: Sore Nipples Ibuprofen (Motrin) 400 mg PO Q4H PRN PRN Reason: Pain Ibuprofen (Motrin) 800 mg PO Q6H PRN PRN Reason: Pain Oxycodone HCl (Oxycodone) 5 mg PO Q2H PRN PRN Reason: Pain Witch Viji (Tucks) 1 pad TOP ASDIRECTED PRN PRN Reason: comfort care Discontinued Medications Butorphanol Tartrate (Stadol) 1 mg IVPUSH Q1H PRN PRN Reason: Pain Carboprost Tromethamine (Hemabate Ds) 250 mcg IM ASDIRECTED PRN PRN Reason: Post Hemorrhage Hydroxyzine Pamoate (Vistaril) 50 mg PO ONETIME ONE Stop: 03/29/18 22:29 Last Admin: 03/29/18 23:07 Dose: 50 mg Lactated Ringer's (Ringers, Lactated) 1,000 mls @ 150 mls/hr IV ASDIRECTED JIMBO Last Admin: 03/30/18 08:56 Dose: 999 mls/hr Oxytocin/Sodium Chloride (Oxytocin 30 Unit/500 Ml-Ns) 30 unit in 500 mls @ 999 mls/hr IV TITRATE JIMBO Oxytocin/Sodium Chloride (Oxytocin 30 Unit/500 Ml-Ns) 30 unit in 500 mls @ 2 mls/hr IV TITRATE JIMBO; Protocol Tranexamic Acid 1,000 mg/ (Sodium Chloride) 110 mls @ 660 mls/hr IV ONETIME PRN PRN Reason: Bleeding Fentanyl/Bupivacaine HCl ([id number]-Rb 2 Mcg/Ml-0.125%) Confirm Administered Dose 100 mls @ as directed EP .STK-MED ONE Stop: 03/30/18 09:12 Lidocaine HCl (Xylocaine 1%) 50 ml INJECT .ONCE PRN PRN Reason: Laceration repair Methylergonovine Maleate (Methergine) 0.2 mg IM ASDIRECTED PRN PRN Reason: Post Hemorrhage Misoprostol (Cytotec) 200 mcg PO .ONCE PRN PRN Reason: Post Hemorrhage Misoprostol (Cytotec) 25 mcg PO Q4H PRN PRN Reason: cervical ripening Last Admin: 03/30/18 03:24 Dose: 25 mcg Misoprostol (Cytotec) 25 mcg VAG Q4H PRN PRN Reason: cervical ripening Misoprostol (Cytotec) 25 mcg VAG Q4H PRN PRN Reason: cervical ripening Misoprostol (Cytotec) 25 mcg VAG Q4H PRN PRN Reason: cervical ripening Last Admin: 03/30/18 03:25 Dose: 25 mcg Misoprostol (Cytotec) 25 mcg VAG ONETIME ONE Stop: 03/29/18 23:38 Last Admin: 03/29/18 23:10 Dose: 25 mcg Nalbuphine HCl (Nubain) 10 mg IVPUSH Q1H PRN PRN Reason: Pain (severe 7-10) Sodium Chloride (Saline Flush) 10 ml FLUSH ASDIRECTED PRN PRN Reason: Keep Vein Open Sodium Chloride (Saline Flush) 2.5 ml FLUSH ASDIRECTED PRN PRN Reason: Keep Vein Open Sterile Water (Sterile Water For Irrigation) 1,000 ml IRR ASDIRECTED PRN PRN Reason: delivery Terbutaline Sulfate (Brethine) 0.25 mg SUBCUT ASDIRECTED PRN PRN Reason: Tacysystole - Exam General: Alert, Oriented, Cooperative, No Acute Distress Lungs: Normal Respiratory Effort GI/Abdominal Exam: Soft, Non-Tender (Female) Exam: Normal External Exam, Normal Bimanual Exam, Vaginal Bleeding, Vaginal Tears Back Exam: Full Range of Motion Extremities: Normal Inspection, Normal Range of Motion, Non-Tender, No Pedal Edema, Normal Capillary Refill Skin: Warm, Dry, Intact Wound/Incisions: Healing Well Neurological: No New Focal Deficit, Normal Speech, Normal Tone Psy/Mental Status: Alert, Normal Affect, Normal Mood - Problem List & Annotations (1) Supervision of normal IUP (intrauterine ) in multigravida SNOMED Code(s): 880289295, 878922497, 407273618 Code(s): Z34.80 - ENCOUNTER FOR SUPRVSN OF NORMAL , UNSP TRIMESTER Status: Acute Priority: High Current Visit: Yes Qualifiers: Trimester: third trimester Qualified Code(s): Z34.83 - Encounter for supervision of other normal , third trimester (2) AMA (advanced maternal age) multigravida 35+ SNOMED Code(s): 315238100 Code(s): O09.529 - SUPERVISION OF ELDERLY MULTIGRAVIDA, UNSPECIFIED TRIMESTER Status: Acute Priority: High Current Visit: Yes Qualifiers: Trimester: third trimester Qualified Code(s): O09.523 - Supervision of elderly multigravida, third trimester (3) Conceived by in vitro fertilization SNOMED Code(s): 541493628 Code(s): Z78.9 - OTHER SPECIFIED HEALTH STATUS Status: Acute Priority: High Current Visit: Yes - Problem List Review Problem List Initiated/Reviewed/Updated: Yes - My Orders Last 24 Hours: My Active Orders 03/29/18 21:21 May Shower [RC] ASDIRECTED Notify Provider [RC] PRN Oxygen Therapy [RC] ASDIRECTED Vital Signs [RC] PER UNIT ROUTINE 03/30/18 14:24 May Shower [RC] ASDIRECTED Up ad Marie [RC] ASDIRECTED Vital Signs [RC] PER UNIT ROUTINE Acetaminophen [Tylenol Extra Strength] 1,000 mg PO Q4H PRN Acetaminophen [Tylenol Extra Strength] 500 mg PO Q4H PRN Benzocaine/Menthol [Dermoplast Pain Relief 20%-0.5% [place]] 78 gm TOP ASDIRECTED PRN Bisacodyl [Dulcolax] 10 mg RECTAL .ONCE PRN Docusate Sodium [Colace] 100 mg PO BID PRN Ibuprofen [Motrin] 400 mg PO Q4H PRN Ibuprofen [Motrin] 800 mg PO Q6H PRN Lanolin [Lansinoh HPA] See Dose Instructions TOP ASDIRECTED PRN Witch Viji [Tucks] 1 pad TOP ASDIRECTED PRN oxyCODONE 5 mg PO Q2H PRN Assess Lochia [WOMSER] Per Unit Routine Assess Uterine Involution [WOMSER] Per Unit Routine Peripheral IV Discontinue [OM.PC] Routine Resuscitation Status Routine 03/30/18 14:25 Patient Status [ADT] Routine 03/30/18 Lunch Regular Diet [DIET] - Plan Plan:: Admitted for elective induction. she can have epidural when needed. Delivery A: of female. APGARS 8/9, Wt: 7lb 15oz, EBL 150cc, 1st deg sulcus lac with repair. Mother and baby bonding well P: Routine pp plan of care.
--- NOTE | 2018-03-30 17:20 | PCM48HPAN ---
Post Anesthesia Note - EVALUATION WITHIN 48HRS OF ANESTHETIC Vital Signs in Normal Range: Yes Patient Participated in Evaluation: Yes Respiratory Function Stable: Yes Airway Patent: Yes Cardiovascular Function Stable: Yes Hydration Status Stable: Yes Pain Control Satisfactory: Yes Nausea and Vomiting Control Satisfactory: Yes Mental Status Recovered: Yes
[2018-03-30] MEDS: Ibuprofen 800 MG Tab PO PRN (17:40)
[2018-03-31] MEDS: Ibuprofen 800 MG Tab PO PRN (03:51)
[2018-03-31 04:19] VITALS: BP 133/79
--- NOTE | 2018-03-31 08:14 | PCM.DCSUM1 ---
Discharge Summary - Hospital Course Free Text/Narrative:: Discharge home with infant. Follow up 6 weeks for post or sooner if needed. - Discharge Data Discharge Date: 03/31/18 Discharge Disposition: Home, Self-Care 01 Condition: Good - Discharge Diagnosis/Problem(s) (1) Supervision of normal IUP (intrauterine ) in multigravida SNOMED Code(s): 795102358, 703366677, 259337023 ICD Code: Z34.80 - ENCOUNTER FOR SUPRVSN OF NORMAL , UNSP TRIMESTER Status: Acute Priority: High Current Visit: Yes Qualifiers: Trimester: third trimester Qualified Code(s): Z34.83 - Encounter for supervision of other normal , third trimester (2) AMA (advanced maternal age) multigravida 35+ SNOMED Code(s): 600520625 ICD Code: O09.529 - SUPERVISION OF ELDERLY MULTIGRAVIDA, UNSPECIFIED TRIMESTER Status: Acute Priority: High Current Visit: Yes Qualifiers: Trimester: third trimester Qualified Code(s): O09.523 - Supervision of elderly multigravida, third trimester (3) Conceived by in vitro fertilization SNOMED Code(s): 664172266 ICD Code: Z78.9 - OTHER SPECIFIED HEALTH STATUS Status: Acute Priority: High Current Visit: Yes - Patient Instructions Diet: Usual Diet as Tolerated Activity: As Tolerated, No Strenuous Activities, Rest and Relax Today Driving: May Drive Today Showering/Bathing: May Shower Notify Provider of: Fever, Increased Pain, Swelling and Redness, Nausea and/or Vomiting Other/Special Instructions: Discharge home with . Follow up 6 weeks for post or sooner if needed. - Discharge Plan Home Medications: Home Meds Bvk220/FA/Omega3/Dha/Fish Oil [ Gummies] 1 tab PO DAILY 08/07/17 [ History] Ondansetron [Zofran ODT] 4 mg PO Q6H PRN 03/30/18 [History] Sertraline HCl [Zoloft] 50 mg PO DAILY 03/30/18 [History] valACYclovir [Valtrex] 1,000 mg PO TID 03/30/18 [History] Referrals: [facility] [Outside] Paulina Dykes CNM [Mid-] - 05/12/18 8:30 am - General Info Date of Service: 03/31/18 Admission Dx/Problem (Free Text: Patient Status Order with Admit Dx/Problem 03/29/18 21:21 Patient Status [ADT] Routine Admission Diagnosis/Problem Admission Diagnosis/Problem Functional Status: Reports: Pain Controlled, Tolerating Diet, Ambulating, Urinating - Review of Systems General: Reports: No Symptoms HEENT: Reports: No Symptoms Pulmonary: Reports: No Symptoms Cardiovascular: Reports: No Symptoms Gastrointestinal: Reports: No Symptoms Genitourinary: Reports: No Symptoms Musculoskeletal: Reports: No Symptoms Skin: Reports: No Symptoms Neurological: Reports: No Symptoms Psychiatric: Reports: No Symptoms - Patient Data Vitals - Most Recent: Last Vital Signs Temp 36.1 C 03/31/18 04:00 Pulse 61 03/30/18 20:33 Resp 18 03/31/18 04:00 BP 133/79 03/31/18 04:00 Pulse Ox 96 03/31/18 04:00 Weight - Most Recent: 125.787 kg Med Orders - Current: Current Medications Acetaminophen (Tylenol Extra Strength) 500 mg PO Q4H PRN PRN Reason: Pain Acetaminophen (Tylenol Extra Strength) 1,000 mg PO Q4H PRN PRN Reason: Pain Benzocaine/Menthol (Dermoplast Pain Relief 20%-0.5% Dalton) 78 gm TOP ASDIRECTED PRN PRN Reason: Perineal Comfort Measure Last Admin: 03/30/18 17:40 Dose: 1 can Bisacodyl (Dulcolax) 10 mg RECTAL .ONCE PRN PRN Reason: Constipation Docusate Sodium (Colace) 100 mg PO BID PRN PRN Reason: Constipation Emollient Ointment (Lansinoh Hpa) 0 gm TOP ASDIRECTED PRN PRN Reason: Sore Nipples Ibuprofen (Motrin) 400 mg PO Q4H PRN PRN Reason: Pain Ibuprofen (Motrin) 800 mg PO Q6H PRN PRN Reason: Pain Last Admin: 03/31/18 03:51 Dose: 800 mg Oxycodone HCl (Oxycodone) 5 mg PO Q2H PRN PRN Reason: Pain Witch Viji (Tucks) 1 pad TOP ASDIRECTED PRN PRN Reason: comfort care Discontinued Medications Butorphanol Tartrate (Stadol) 1 mg IVPUSH Q1H PRN PRN Reason: Pain Carboprost Tromethamine (Hemabate Ds) 250 mcg IM ASDIRECTED PRN PRN Reason: Post Hemorrhage Hydroxyzine Pamoate (Vistaril) 50 mg PO ONETIME ONE Stop: 03/29/18 22:29 Last Admin: 03/29/18 23:07 Dose: 50 mg Lactated Ringer's (Ringers, Lactated) 1,000 mls @ 150 mls/hr IV ASDIRECTED JIMBO Last Admin: 03/30/18 08:56 Dose: 999 mls/hr Oxytocin/Sodium Chloride (Oxytocin 30 Unit/500 Ml-Ns) 30 unit in 500 mls @ 999 mls/hr IV TITRATE JIMBO Oxytocin/Sodium Chloride (Oxytocin 30 Unit/500 Ml-Ns) 30 unit in 500 mls @ 2 mls/hr IV TITRATE JIMBO; Protocol Tranexamic Acid 1,000 mg/ (Sodium Chloride) 110 mls @ 660 mls/hr IV ONETIME PRN PRN Reason: Bleeding Fentanyl/Bupivacaine HCl (Ewaexbqh-Bsoxv-Yn 2 Mcg/Ml-0.125%) Confirm Administered Dose 100 mls @ as directed EP .STK-MED ONE Stop: 03/30/18 09:12 Lidocaine HCl (Xylocaine 1%) 50 ml INJECT .ONCE PRN PRN Reason: Laceration repair Methylergonovine Maleate (Methergine) 0.2 mg IM ASDIRECTED PRN PRN Reason: Post Hemorrhage Misoprostol (Cytotec) 200 mcg PO .ONCE PRN PRN Reason: Post Hemorrhage Misoprostol (Cytotec) 25 mcg PO Q4H PRN PRN Reason: cervical ripening Last Admin: 03/30/18 03:24 Dose: 25 mcg Misoprostol (Cytotec) 25 mcg VAG Q4H PRN PRN Reason: cervical ripening Misoprostol (Cytotec) 25 mcg VAG Q4H PRN PRN Reason: cervical ripening Misoprostol (Cytotec) 25 mcg VAG Q4H PRN PRN Reason: cervical ripening Last Admin: 03/30/18 03:25 Dose: 25 mcg Misoprostol (Cytotec) 25 mcg VAG ONETIME ONE Stop: 03/29/18 23:38 Last Admin: 03/29/18 23:10 Dose: 25 mcg Nalbuphine HCl (Nubain) 10 mg IVPUSH Q1H PRN PRN Reason: Pain (severe 7-10) Sodium Chloride (Saline Flush) 10 ml FLUSH ASDIRECTED PRN PRN Reason: Keep Vein Open Sodium Chloride (Saline Flush) 2.5 ml FLUSH ASDIRECTED PRN PRN Reason: Keep Vein Open Sterile Water (Sterile Water For Irrigation) 1,000 ml IRR ASDIRECTED PRN PRN Reason: delivery Terbutaline Sulfate (Brethine) 0.25 mg SUBCUT ASDIRECTED PRN PRN Reason: Tacysystole - Exam General: Reports: Alert, Oriented, Cooperative, No Acute Distress Lungs: Reports: Clear to Auscultation, Normal Respiratory Effort Cardiovascular: Reports: Regular Rate, Regular Rhythm, No Murmurs GI/Abdominal Exam: Normal Bowel Sounds, Soft, Non-Tender, No Organomegaly, No Distention, No Abnormal Bruit, No Mass, Pelvis Stable (Female) Exam: Vaginal Bleeding Rectal (Female) Exam: Deferred Back Exam: Reports: Normal Inspection, Full Range of Motion Extremities: Normal Inspection, Normal Range of Motion, Non-Tender, No Pedal Edema, Normal Capillary Refill Skin: Reports: Warm, Dry, Intact Wound/Incisions: Reports: Healing Well Neurological: Reports: No New Focal Deficit, Normal Gait, Normal Speech, Normal Tone, Strength Equal Bilateral Psy/Mental Status: Reports: Alert, Normal Affect, Normal Mood
== END 2018-03-31 15:30 | disposition home or self-care (01) | DRG 560 ==
LOC: MW.OBCHECK 20:28 → MW.OB 20:31 → MW.OBCHECK 21:20 → MW.OB 21:21 → OBSVTOIN 03-30 13:48
PROVIDERS: ADMIT Obstetrics & Gynecology; ATTEND Obstetrics & Gynecology
PROC: 10E0XZZ Delivery of Products of Conception, External Approach (ICD-10-PCS; principal; 2018-03-30)
PROC: 10907ZC Drainage of Amniotic Fluid, Therapeutic from Products of Conception, Via Natural or Artificial Opening (ICD-10-PCS; 2018-03-30)
PROC: 3E0P7VZ Introduction of Hormone into Female Reproductive, Via Natural or Artificial Opening (ICD-10-PCS; 2018-03-30)
PROC: 0HQ9XZZ Repair Perineum Skin, External Approach (ICD-10-PCS; 2018-03-30)
DX: O70.0 First degree perineal laceration during delivery (principal); O09.813 Supervision of pregnancy resulting from assisted reproductive technology, third trimester; O09.523 Supervision of elderly multigravida, third trimester; Z3A.39 39 weeks gestation of pregnancy; Z37.0 Single live birth
CPT/HCPCS: 36415; 59025; 59409; 85027; 86850; 86900; 86901; A9270-GY; J7120

== ENCOUNTER 2018-04-04 12:09 | Emergency (ER) | payer BC ==
--- NOTE | 2018-04-04 12:41 | EDM.PDOC ---
ED HPI GENERAL MEDICAL PROBLEM - General Chief Complaint: General Stated Complaint: LEFT LEG SWOLLEN Time Seen by Provider: 04/04/18 12:23 Source of Information: Reports: Patient History Limitations: Reports: No Limitations - History of Present Illness INITIAL COMMENTS - FREE TEXT/NARRATIVE: Presents reporting pain behind the left knee and left lower extremity swelling. The patient reports that she had a normal spontaneous vaginal delivery of a term infant on 03/30/2018. No or peripartum complications. She is breast-feeding. Lochia tapering off to orange. She did have a little bit of lower extremity swelling at the end of her but now the left lower leg has more than the right. The left leg has has not been red or warm and has been soft. 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 She would just like to have an ultrasound to be certain she doesn't have a blood clot. No breathing problems fever or tachycardia. - Related Data Allergies Allergy/AdvReac Type Severity Reaction Status Date / Time minocycline Allergy Shortness Verified 08/12/17 10:59 of Breath Home Meds: Home Meds Iik058/FA/Omega3/Dha/Fish Oil [ Gummies] 1 tab PO DAILY 08/07/17 [ History] Ondansetron [Zofran ODT] 4 mg PO Q6H PRN 03/30/18 [History] Sertraline HCl [Zoloft] 50 mg PO DAILY 03/30/18 [History] valACYclovir [Valtrex] 1,000 mg PO TID 03/30/18 [History] Past Medical History - Past Health History Medical/Surgical History: Denies Medical/Surgical History HEENT History: Reports: None Cardiovascular History: Reports: None Respiratory History: Reports: None Gastrointestinal History: Reports: None Genitourinary History: Reports: None TOURIST GUIDE History: Reports: None Musculoskeletal History: Reports: None Neurological History: Reports: None Psychiatric History: Reports: None 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 Endocrine/Metabolic History: Reports: Obesity/BMI 30+ Hematologic History: Reports: None Immunologic History: Reports: None Oncologic (Cancer) History: Reports: None Dermatologic History: Reports: None - Infectious Disease History Infectious Disease History: Reports: None - Past Surgical History Head Surgeries/Procedures: Reports: None HEENT Surgical History: Reports: Tonsillectomy Cardiovascular Surgical History: Reports: None Respiratory Surgical History: Reports: None GI Surgical History: Reports: Appendectomy Female Surgical History: Reports: None Endocrine Surgical History: Reports: None Neurological Surgical History: Reports: None Musculoskeletal Surgical History: Reports: None Oncologic Surgical History: Reports: None Social & Family History - Family History Family Medical History: Noncontributory - Tobacco Use Smoking Status *Q: Never Smoker Second Hand Smoke Exposure: No - Caffeine Use Caffeine Use: Reports: Other Other Caffeine Use: 3 cups in a day - Recreational Drug Use Recreational Drug Use: No ED ROS GENERAL - Review of Systems Review Of Systems: ROS reveals no pertinent complaints other than HPI. ED EXAM, GENERAL - Physical Exam Exam: See Below Exam Limited By: No Limitations General Appearance: Alert, No Apparent Distress Ears: Normal External Exam Nose: Normal Inspection Throat/Mouth: Normal Inspection Head: Atraumatic, Normocephalic Neck: Normal Inspection Respiratory/Chest: No Respiratory Distress, Lungs Clear, Normal Breath Sounds Cardiovascular: Normal Peripheral Pulses, Regular Rate, Rhythm, No Murmur GI/Abdominal: Soft Extremities: Other (Mild swelling left ankle. Calves are soft without erythema, calor or swelling. No mass effect, swelling, calor, erythema behind left knee. Mild tenderness behind left knee) Neurological: Alert, Oriented Psychiatric: Normal Affect, Normal Mood Skin Exam: Warm, Dry, Intact, Normal Color, Other (Dry rash scattered about shins, pre-existing from pruritus and scratching during .) Course - Vital Signs Last Recorded V/S: Last Vital Signs Temp 36.6 C 04/04/18 12:24 Pulse 69 04/04/18 12:24 Resp 20 04/04/18 12:24 BP 148/85 H 04/04/18 12:24 Pulse Ox 96 04/04/18 12:24 - Orders/Labs/Meds Orders: Active Orders 24 hr Category Date Time Status Venous Doppler Lwr Ext Lt [US] Stat Exams 04/04/18 12:33 Taken Departure - Departure Time of Disposition: 13:58 Disposition: Home, Self-Care 01 Clinical Impression: Ankle edema - Discharge Information Referrals: Paulina Dykes CNM [Primary Care Provider] - Forms: ED Department Discharge Additional Instructions: 1. Elevate feet. Compression socks. 2. Follow up with your OB provider. - My Orders Last 24 Hours: My Active Orders 04/04/18 12:33 Venous Doppler Lwr Ext Lt [US] Stat - Assessment/Plan Last 24 Hours: My Active Orders 04/04/18 12:33 Venous Doppler Lwr Ext Lt [US] Stat
[2018-04-04 14:11] VITALS: BP 167/82
--- NOTE | 2018-04-04 16:30 | US ---
EXAM DATE: 04/04/18 PATIENT'S AGE: 37 Patient: ROSE MARY SHRESTHA Facility: [place], [place] Site . Site : 1980 Study: US Extremity Left [id number]/22/2018 1:08:17 PM Ordering Physician: Doctor Rivera Final Report: INDICATION: DELIVERED BABY 18 SWELLING LEFT ANKLE,PAIN BEHIND LEFT KNEE TECHNIQUE: Ultrasound venous duplex lower left extremity. Compression venous exam was performed using suarez-scale, color Doppler, and spectral Doppler analysis. COMPARISON: None FINDINGS: Sonographic imaging demonstrates the left common femoral, deep femoral, superficial femoral, popliteal, posterior tibial and greater saphenous and the contralateral right common femoral veins to be fully compressible with normal color Doppler blood flow. IMPRESSION: No evidence of deep venous thrombosis within the left lower extremity. Dictated by Pascual Shirley MD @ 04/04/2018 1:44:41 PM Dictated by: Pascual Shirley MD @ 04/04/2018 13:45:17 (Electronic Signature) Report Signed by Proxy. [facility]
== END 2018-04-04 14:08 | disposition home or self-care (01) ==
LOC: MW.ED 12:09
DX: R60.0 Localized edema (principal); Z88.1 Allergy status to other antibiotic agents; Z79.899 Other long term (current) drug therapy
CPT/HCPCS: 93971-26-LT; 93971-LT; 99284-25